=== PATIENT | female | born 1980 | race Caucasian/White ===

== ENCOUNTER → 2021-04-23 | Outpatient (CLI) | payer BC, MEDICAID ==
--- NOTE | 2021-04-23 13:32 | RAD ---
INDICATION: 40 years of age asymptomatic female patient presents for screening mammography. TECHNIQUE: Full field craniocaudal and mediolateral oblique images of both breasts were obtained usi ng digital technique with tomosynthesis and also analyzed with computer-aided detection software. COMPARISON: This is a baseline examination. BREAST COMPOSITION: Category B: There are scattered fibroglandular densities. FINDINGS: Benign calcifications are present. Focal asymmetry at the posterior depth right breast in the slightly lateral, inferior right breast ap proximately 11 cm from the nipple. No suspicious right breast microcalcification or architectural dis tortion. No suspicious masses, microcalcifications or architectural distortion is present to suggest malignanc y in the left breast. The visualized axillae are unremarkable. IMPRESSION: Right breast focal asymmetry, findings for which additional imaging is advised. RECOMMENDATION: The patient will be contacted to return for additional imaging and a supplemental rep ort will follow. Additional imaging to include spot compression views and likely ultrasound. BIRADS 0: INCOMPLETE - NEED ADDITIONAL IMAGING EVALUATION AND/OR PRIOR MAMMOGRAMS FOR COMPARISON. This study was interpreted with the benefit of Computerized Aided Detection (CAD). Patient information is entered into the reminder system with a target due date for the next screening mammogram. Mammography is the most sensitive method for finding small breast cancers, but it does not detect the m all and is not a substitute for careful clinical examination. A negative mammogram does not negate a clinically suspicious finding and should not result in delay in biopsying a clinically suspicious a bnormality. "Our facility is accredited by the [employer] Mammography [employer]." Electronically signed by: Isai Mix MD (04/23/2021 1:30 PM) [id number]
== END ==
LOC: MAMMO 08:57
PROVIDERS: ATTEND Family Medicine
DX: Z12.31 Encounter for screening mammogram for malignant neoplasm of breast (principal)
CPT/HCPCS: 77063; 77067

== ENCOUNTER → 2021-05-19 | Outpatient (CLI) | payer BC, MEDICAID ==
--- NOTE | 2021-05-19 13:33 | RAD ---
EXAMINATION: US BREAST RT, MG DIAGNOSTICUNILAT MAMMO History: Recalled from screening mammogram for focal asymmetry in the outer right breast. Comparison: Screening mammogram 04/23/2021. Technique: Diagnostic right breast mammogram was obtained with spot compression CC and MLO views. Foc used outer right breast ultrasound was also performed. Findings: Breast Tissue Density B : There are scattered areas of fibroglandular density. The focal asymmetry does not definitively resolve on spot compression. Right breast ultrasound: There is a 4 mm hypoechoic, circumscribed round mass at 10:00, 8 cm from the nipple, which may correspond with the mammographic abnormality. This has some internal echoes. No po sterior shadowing or internal vascularity. No axillary lymphadenopathy. IMPRESSION: Probably benign 4 mm hypoechoic mass in the right breast at 10:00, 8 cm from the nipple. This may be a complicated cyst. Recommend 6 month follow-up right breast ultrasound to ensure stability. BI-RADS category 3: Probably benign. "Our facility is accredited by the [employer] Mammography [employer]." Electronically signed by: Prisca Orellana MD (05/19/2021 1:31 PM) [email or web address]
== END ==
LOC: MAMMO 16:18
PROVIDERS: ATTEND Family Medicine
DX: N63.11 Unspecified lump in the right breast, upper outer quadrant (principal)
CPT/HCPCS: 76641; 77065